=== PATIENT | female | born 1995 | race Caucasian/White ===

== ENCOUNTER 2018-04-20 09:28 | Emergency (ER) | payer BC ==
[~2018-04-20] VITALS: Ht 170.2 cm; Wt 54.4 kg
[~2018-04-20 09:28] MED LIST: BIRTH CONTROL; CEPH500 PO; HYDR1TAB94 PO; ONDA4 PO; Pyridium200 MG PO
[2018-04-20 10:15] LABS: BASOPHILS ABSOLUTE AUTO 0.03 K/mm3 (0.00-0.23); BASOPHILS PERCENT AUTO 0 % (0-2); EOSINOPHILS ABSOLUTE AUTO 0.13 K/mm3 (0.00-0.68); EOSINOPHILS PERCENT AUTO 1 % (0-6); Hemoglobin 13.3 g/dL (11.5-16.0); IMMATURE GRAN ABSOLUTE AUTO 0.03 K/mm3 (0.00-0.10); IMMATURE GRAN PERCENT AUTO 0 % (0-1); LYMPHOCYTES ABSOLUTE AUTO 2.44 K/mm3 (0.84-5.20); LYMPHOCYTES PERCENT AUTO 24 % (21-46); MONOCYTES ABSOLUTE AUTO 0.93 K/mm3 (0.16-1.47); MONOCYTES PERCENT AUTO 9 % (4-13); Mean Corpuscular HGB 31.4 pg (26.0-34.0); Mean Corpuscular Volume 90 fL (80-100); Mean Platelet Volume 9.3 fL (9.1-12.4); NEUTROPHILS ABSOLUTE AUTO 6.58 K/mm3 (1.96-9.15); NEUTROPHILS PERCENT AUTO 65 % (41-73); Platelet Count 293 K/mm3 (150-400); RDW Coefficient Variation 12.3 % (11.7-14.2); RDW Standard Deviation 40.9 fL (35.1-46.3); Red Blood Cell Count 4.23 M/mm3 (3.80-5.20); White Blood Cell Count 10.14 K/mm3 (4.00-11.30)
[2018-04-20 10:30] LABS: Alanine Aminotransfer (ALT/SGP 16 U/L (12-78); Albumin, Blood 3.7 g/dL (3.4-5.0); Alk Phos 101 U/L (50-136); Anion Gap 8 mmol/L (6-16); Aspartate Aminotrans (AST/SGOT 12 U/L (12-37); Bilirubin, Total 0.3 mg/dL (0.1-1.0); Blood Urea Nitrogen 13 mg/dL (8-24); CO2, Blood 23 mmol/L (21-32); Calcium, Blood 8.8 mg/dL (8.5-10.1); Chloride, Blood 110 mmol/L (98-108); Creatinine, Blood 0.81 mg/dL (0.40-1.00); Globulin, Blood 3.8 g/dL (2.2-4.0); Glomerular Filtration Rate >60 (60-); Glucose, Blood 86 mg/dL (70-99); Potassium, Blood 3.8 mmol/L (3.5-5.5); Sodium, Blood 141 mmol/L (136-145); Total Protein, Blood 7.5 g/dL (6.4-8.2)
[2018-04-20] MEDS ORDERED: Percocet 5-3251 EACH PO (12:19)
[2018-04-20] MEDS ORDERED: CEFP200 PO (12:19)
[2018-04-20] MEDS ORDERED: ALBU90OI INH (12:19)
== END 2018-04-20 12:28 | disposition home or self-care (01) ==
LOC: ER 09:28
PROVIDERS: Physician Assistant
DX: J18.9 Pneumonia, unspecified organism (principal); Z88.2 Allergy status to sulfonamides
CPT/HCPCS: 36415; 71046; 71260; 80053; 85025; 85379; 93005; 93010; 94640; 96374; 99284-25; J1885; J7120; Q9967

== ENCOUNTER 2019-09-10 04:54 | Emergency (ER) | payer BC ==
[~2019-09-10] VITALS: Ht 170.2 cm; Wt 86.2 kg
[~2019-09-10 04:54] MED LIST changes: +ALBU90OI INH; +CEFP200 PO; +Percocet 5-3251 EACH PO
[2019-09-10 05:14] LABS: Source, Urine Clean Catch
[2019-09-10 05:25] LABS: Appearance, Urine Hazy (Clear); Bilirubin, Urine Neg (Neg); Blood, Urine 5+ (Neg); Color, Urine Yellow (P-Yellow); Glucose Qualitative, Urine Neg (Neg); Ketones, Urine Neg (Neg); Leukocyte Esterase, Urine 2+ (Neg); Nitrite, Urine Neg (Neg); Protein, Urine 1+ (Neg); Urobilinogen, Urine NORM (Normal)
[2019-09-10 05:28] LABS: BASOPHILS ABSOLUTE AUTO 0.04 K/mm3 (0.00-0.23); BASOPHILS PERCENT AUTO 0 % (0-2); EOSINOPHILS ABSOLUTE AUTO 0.21 K/mm3 (0.00-0.68); EOSINOPHILS PERCENT AUTO 2 % (0-6); Hematocrit 41.5 % (33.0-51.0); Hemoglobin 13.8 g/dL (11.5-16.0); IMMATURE GRAN ABSOLUTE AUTO 0.05 K/mm3 (0.00-0.10); IMMATURE GRAN PERCENT AUTO 0 % (0-1); LYMPHOCYTES ABSOLUTE AUTO 3.76 K/mm3 (0.84-5.20); LYMPHOCYTES PERCENT AUTO 26 % (21-46); MONOCYTES ABSOLUTE AUTO 1.25 K/mm3 (0.16-1.47); MONOCYTES PERCENT AUTO 9 % (4-13); Mean Corpuscular HGB 29.9 pg (26.0-34.0); Mean Corpuscular HGB Conc 33.3 g/dL (31.5-36.5); Mean Corpuscular Volume 90 fL (80-100); Mean Platelet Volume 9.4 fL (9.1-12.4); NEUTROPHILS ABSOLUTE AUTO 9.05 K/mm3 (1.96-9.15); NEUTROPHILS PERCENT AUTO 63 % (41-73); Platelet Count 302 K/mm3 (150-400); RDW Coefficient Variation 12.6 % (11.7-14.2); RDW Standard Deviation 41.1 fL (35.1-46.3); Red Blood Cell Count 4.62 M/mm3 (3.80-5.20); White Blood Cell Count 14.36 K/mm3 (4.00-11.30)
[2019-09-10 05:33] LABS: Amorphous Light (0-Heavy); Bacteria Mod /hpf; Red Blood Cells, Urine 50-100 /hpf (0-2); Squamous Epithelial Cells Few /hpf (Few)
[2019-09-10 05:47] LABS: Alanine Aminotransfer (ALT/SGP 30 U/L (12-78); Albumin, Blood 3.5 g/dL (3.4-5.0); Albumin/Globulin Ratio 0.9 (0.8-1.8); Alk Phos 108 U/L (50-136); Anion Gap 8 mmol/L (6-16); Aspartate Aminotrans (AST/SGOT 17 U/L (12-37); Bilirubin, Total 0.4 mg/dL (0.1-1.0); Blood Urea Nitrogen 15 mg/dL (8-24); Bun/Creatinine Ratio 19.9 (12.0-20.0); CO2, Blood 24 mmol/L (21-32); Calcium, Blood 9.1 mg/dL (8.5-10.1); Chloride, Blood 110 mmol/L (98-108); Creatinine, Blood 0.75 mg/dL (0.40-1.00); Globulin, Blood 3.8 g/dL (2.2-4.0); Glomerular Filtration Rate >60 (60-); Glucose, Blood 97 mg/dL (70-99); Magnesium, Blood 1.9 mg/dL (1.6-2.4); Potassium, Blood 3.6 mmol/L (3.5-5.5); Sodium, Blood 142 mmol/L (136-145); Total Protein, Blood 7.3 g/dL (6.4-8.2)
[2019-09-10] MEDS ORDERED: ONDA4ODT MM (06:45)
[2019-09-10] MEDS ORDERED: CEFD300 PO (06:45)
== END 2019-09-10 07:00 | disposition home or self-care (01) ==
LOC: ER 04:54
PROVIDERS: Emergency Medicine
DX: N12 Tubulo-interstitial nephritis, not specified as acute or chronic (principal); Z88.2 Allergy status to sulfonamides; Z79.899 Other long term (current) drug therapy
CPT/HCPCS: 36415; 74176; 80053; 81001; 81025; 83690; 83735; 85025; 87086; 96361; 96365; 96375; 99284-25; A9270; J0696; J1170; J1885; J7030

== ENCOUNTER → 2019-10-08 | Outpatient (CLI) | payer BC ==
[~2019-10-08] MED LIST changes: +CEFD300 PO; +ONDA4ODT MM
[2019-10-08 11:23] LABS: BASOPHILS ABSOLUTE AUTO 0.05 K/mm3 (0.00-0.23); BASOPHILS PERCENT AUTO 1 % (0-2); EOSINOPHILS ABSOLUTE AUTO 0.14 K/mm3 (0.00-0.68); EOSINOPHILS PERCENT AUTO 1 % (0-6); Hematocrit 39.6 % (33.0-51.0); Hemoglobin 13.6 g/dL (11.5-16.0); IMMATURE GRAN ABSOLUTE AUTO 0.04 K/mm3 (0.00-0.10); IMMATURE GRAN PERCENT AUTO 0 % (0-1); LYMPHOCYTES ABSOLUTE AUTO 2.68 K/mm3 (0.84-5.20); LYMPHOCYTES PERCENT AUTO 26 % (21-46); MONOCYTES ABSOLUTE AUTO 0.78 K/mm3 (0.16-1.47); MONOCYTES PERCENT AUTO 8 % (4-13); Mean Corpuscular HGB 30.1 pg (26.0-34.0); Mean Corpuscular HGB Conc 34.3 g/dL (31.5-36.5); Mean Corpuscular Volume 88 fL (80-100); Mean Platelet Volume 9.6 fL (9.1-12.4); NEUTROPHILS ABSOLUTE AUTO 6.66 K/mm3 (1.96-9.15); NEUTROPHILS PERCENT AUTO 64 % (41-73); Platelet Count 290 K/mm3 (150-400); RDW Coefficient Variation 12.8 % (11.7-14.2); RDW Standard Deviation 41.1 fL (35.1-46.3); Red Blood Cell Count 4.52 M/mm3 (3.80-5.20); White Blood Cell Count 10.35 K/mm3 (4.00-11.30)
[2019-10-08 11:37] LABS: Alanine Aminotransfer (ALT/SGP 39 U/L (12-78); Albumin, Blood 3.8 g/dL (3.4-5.0); Albumin/Globulin Ratio 1.1 (0.8-1.8); Alk Phos 106 U/L (40-126); Anion Gap 15 mmol/L (6-16); Aspartate Aminotrans (AST/SGOT 21 U/L (12-37); Bilirubin, Total 0.3 mg/dL (0.1-1.0); Blood Urea Nitrogen 7 mg/dL (8-24); Bun/Creatinine Ratio 9.9 (12.0-20.0); CO2, Blood 20 mmol/L (21-32); Calcium, Blood 8.8 mg/dL (8.5-10.1); Chloride, Blood 106 mmol/L (98-108); Creatinine, Blood 0.71 mg/dL (0.40-1.00); Globulin, Blood 3.4 g/dL (2.2-4.0); Glomerular Filtration Rate >60 (60-); Glucose, Blood 90 mg/dL (70-99); Potassium, Blood 3.8 mmol/L (3.5-5.5); Sodium, Blood 141 mmol/L (136-145); Total Protein, Blood 7.2 g/dL (6.4-8.2)
[2019-10-09 06:32] LABS: Candida species (DNA Probe) Negative (NEGATIVE); G. vaginalis (DNA Probe) Negative (NEGATIVE); T. vaginalis (DNA Probe) Negative (NEGATIVE)
[2019-10-10 16:06] LABS: CHLAMYDIA TRACHOMATIS, NAA Negative (Negative); NEISSERIA GONORRHOEAE, NAA Negative (Negative)
== END ==
LOC: LAB EV 11:18 → LAB SHORT 11:18
PROVIDERS: Physician Assistant
DX: Z33.1 Pregnant state, incidental (principal)
CPT/HCPCS: 80053; 84702; 85025; 86900; 86901; 87480; 87491; 87510; 87591; 87660

== ENCOUNTER → 2020-01-06 | Outpatient (CLI) | payer OTHER | END | disposition home or self-care (01) | LOC: LAB SHORT 15:51 → LAB EV 15:51 | DX: J03.90 Acute tonsillitis, unspecified (principal) | CPT/HCPCS: 87081 ==

== ENCOUNTER → 2020-05-18 | Outpatient (CLI) | payer OTHER ==
[~2020-05-18] MED LIST changes: +PRENATAL TABLE1 EAC2 PO
[2020-05-19 08:42] LABS: Candida species (DNA Probe) Positive (NEGATIVE); G. vaginalis (DNA Probe) Negative (NEGATIVE); T. vaginalis (DNA Probe) Negative (NEGATIVE)
== END | disposition home or self-care (01) ==
LOC: LAB 12:33 → LAB SHORT 12:33
PROVIDERS: Obstetrics & Gynecology
DX: N76.0 Acute vaginitis (principal); Z33.1 Pregnant state, incidental
CPT/HCPCS: 87081; 87480; 87510; 87653; 87660

== ENCOUNTER 2020-05-24 09:30 | Inpatient (IN) | payer OTHER ==
[~2020-05-24] VITALS: Ht 170.2 cm; Wt 107.2 kg
[~2020-05-24 09:30] MED LIST changes: -PRENATAL TABLE1 EAC2 PO
[2020-06-03] MEDS ORDERED: PRENATAL TABLE1 EAC2 PO (15:29)
--- NOTE | 2020-06-03 15:55 | NUR ---
PREVISIT - HISTORY MORE THAN 5 YEARS AGO ATTEMPTED TO HURT SELF / NO ISSUE SINCE - WILL GET ORDER FROM DOCTOR ON ADMIT 06/04 @ 9424 BY ADMIT RN
--- NOTE | 2020-06-03 16:05 | NUR ---
PER DISCUSSION W/DR AND PATIENT NO CONCERNS
[2020-06-04 06:53] LABS: BASOPHILS ABSOLUTE AUTO 0.03 K/mm3 (0.00-0.23); BASOPHILS PERCENT AUTO 0 % (0-2); EOSINOPHILS ABSOLUTE AUTO 0.15 K/mm3 (0.00-0.68); EOSINOPHILS PERCENT AUTO 1 % (0-6); Hematocrit 32.4 % (33.0-51.0); Hemoglobin 10.8 g/dL (11.5-16.0); IMMATURE GRAN ABSOLUTE AUTO 0.09 K/mm3 (0.00-0.10); IMMATURE GRAN PERCENT AUTO 1 % (0-1); LYMPHOCYTES ABSOLUTE AUTO 2.28 K/mm3 (0.84-5.20); LYMPHOCYTES PERCENT AUTO 16 % (21-46); MONOCYTES ABSOLUTE AUTO 0.98 K/mm3 (0.16-1.47); MONOCYTES PERCENT AUTO 7 % (4-13); Mean Corpuscular HGB 28.5 pg (26.0-34.0); Mean Corpuscular HGB Conc 33.3 g/dL (31.5-36.5); Mean Corpuscular Volume 86 fL (80-100); Mean Platelet Volume 10.7 fL (9.1-12.4); NEUTROPHILS ABSOLUTE AUTO 10.39 K/mm3 (1.96-9.15); NEUTROPHILS PERCENT AUTO 75 % (41-73); Platelet Count 253 K/mm3 (150-400); RDW Coefficient Variation 13.8 % (11.7-14.2); RDW Standard Deviation 42.8 fL (35.1-46.3); Red Blood Cell Count 3.79 M/mm3 (3.80-5.20); White Blood Cell Count 13.92 K/mm3 (4.00-11.30)
--- NOTE | 2020-06-04 08:18 | NUR ---
06/04/20 0818 Madalyn Holley SPINAL IN, DR LUTZ ATTEMPTING VERSION, DR PLUNKETT ASSISTING
[2020-06-04 08:55] LABS: PCO2 Cord - Arterial 43 mmHg (40-50); PO2 Cord - Arterial 21 mmHg (16-20); pH Cord - Arterial 7.34 (7.28-7.35)
[2020-06-04 08:57] LABS: PCO2 Cord - Venous 40.1 mmHg (40-50); PO2 Cord - Venous 35.5 mmHg (28-32); pH Umbilical Cord - Venous 7.36 (7.26-7.35)
--- NOTE | 2020-06-04 10:59 | NUR ---
FORMULA FEEDING INITIATED DUE TO LOW CBG ON NB
[2020-06-05 06:01] LABS: Hematocrit 24.8 % (33.0-51.0); Mean Corpuscular HGB 28.1 pg (26.0-34.0); Mean Corpuscular HGB Conc 32.3 g/dL (31.5-36.5); Mean Corpuscular Volume 87 fL (80-100); Mean Platelet Volume 10.7 fL (9.1-12.4); Platelet Count 207 K/mm3 (150-400); RDW Coefficient Variation 13.8 % (11.7-14.2); RDW Standard Deviation 43.4 fL (35.1-46.3); Red Blood Cell Count 2.85 M/mm3 (3.80-5.20); White Blood Cell Count 17.14 K/mm3 (4.00-11.30)
--- NOTE | 2020-06-05 07:32 | NUR ---
ASSUMED CARE REPT FROM Philippe GONZALEZ RN, STABLE RESTING COMFORTABLY MINIMAL USE ON POLITICAL AIDE,
--- NOTE | 2020-06-05 13:09 | NUR ---
S/L IV TOLERATING PO PAIN MEDS WELL
--- NOTE | 2020-06-05 19:04 | NUR ---
STABLE PT UP AMBULATING SHORT DISTANCES, BREAST FEED WELL, HEADACHE RETURNS AT TIMES, HAVING GOOD PAIN CONTROL WITH PO MEDS PER PT, VOIDING W/O DIFFICULTY, REPT TO PM SHIFT, ENCOURAGED PT TO AMBULATE BEFORE BEDTIME
--- NOTE | 2020-06-06 06:41 | NUR ---
06/06/20 0500 pt continues to c/o head,neck and abd pain, given kpad nad ice pack and pt sitting up in chair 0630 pt assleep in bed with kpad on back of neck, ice pack on the front of her head and sitting with HOB elevated
--- NOTE | 2020-06-06 08:41 | NUR ---
DR LUTZ AT BEDSIDE, DISCUSSING SPINAL HEADACHE
--- NOTE | 2020-06-06 09:10 | NUR ---
PT LYING IN BED NOW C/O HEADACHE WHEN SHE STANDS, SO IN ROOM ASSISTING WITH CARE, MEDICATED FOR PAIN AT THIS TIME, ASSESSMENT OTHERWISE WNL
--- NOTE | 2020-06-06 10:57 | NUR ---
DR LUTZ NOTIFIED OF PT HEADACHE GETTING WORST WHEN STANDING UP, JULIANNE MENDEZ NOTIFIED OF ANESTH CONSULT R/O SPINAL ESTRELLA, MEDICATIONS ORDERED
--- NOTE | 2020-06-06 12:38 | NUR ---
PT UP OUT OF BED AMBULATING DOWN BERG PUSHING CRIB , SO AT HER SIDE
--- NOTE | 2020-06-06 13:29 | NUR ---
PT SITTING UP SLIGHTLY STATES PAIN 4/10 FOR HEADACHE, ENCOURAGE PT TO LIE FLAT TO HELP WITH HEADACHE SHE HAS STATED IT MUCH BETTER LYING FLAT. SO IN ROOM ASSISTING WITH CARE OF NB
--- NOTE | 2020-06-06 16:00 | NUR ---
NB DISCHARGE TEACHING COMPLETED, PT LYING FLAT IN BED STATE ESTRELLA IS COMPLETELY GONE WHEN LYING DOWN, SPOKE WITH JULIANNE RN IN OR, CONFIRMED DR CANALES WILL BE DOWN WHEN CASES ARE DONE. PT BREAST FEEDING IN THE SIDE LYING POSITION, EDUCATED PT AND SO NOT TO SLEEP WITH NB IN BED ONLY BREAST FEED THAN DAD CAN RETURN NB TO CRIB, BOTH VERBALIZED UNDERSTANDING
--- NOTE | 2020-06-06 18:52 | NUR ---
REPT TO PM SHIFT
--- NOTE | 2020-06-07 14:37 | NUR ---
CONSULT AN HOUR AGO JULIANNE FROM THE OR CALLED FOR AN ANESTHESIA CONSULT FOR SPINAL HEADACHE. PT CONTINUES TO BE MISERABLE AND DR GTZ STATES SHE WILL BE SEEN BEFORE SHE IS DISCHARGED HOME. JULIANNE MENDEZ CALLED BACK AND STATES DR WOOD WHO IS THE ONCALL DR TODAY DECLINES TO COME IN AT THIS TIME AND ASK THAT HIS COLLEGUE (NAME NOT GIVEN) THAT IS HERE TO DO THE CONSULT. THE ANESTHESIOLOGIST THAT WAS IN HOUSE HAD ALREADY LEFT AND REFUSES TO COME BACK IN FOR THE CONSULT AND NOW JULIANNE MENDEZ STATES HE WILL BE CALLING YVETTE AGAIN WHO TECHNICALLY ISNT ONCALL UNTIL 1700. CORDINATOR DIMPLE MENDEZ UPDATED ON THIS.
--- NOTE | 2020-06-07 18:25 | NUR ---
BLOOD PATCH DR CRAWFORD AT [facility] AT 1740. PATIENT DISCRIBED HEADACHE AND BENEFITS AND RISK FACTORS DISCUSSED WITH DR LUTZ AT BEDSIDE WELL. PT SIGNED CONSENT FOR BLOOD PATCH. PT SAT UP FOR PROCEDURE. 20 CC BLOOD DRAWN FROM LAC AND BLOOD PATCH DONE AT 1755. PATIENT INSTRUCTED TO LAY FLAT. NECK PAIN AND STIFFNESS FELT NOW BUT HER ACTUAL TEMPORAL HEAD PAIN SEEMED GONE. PT HAD NO QUESTIONS OR CONCERNS. PLAN TO DC HOME IN 1 HOUR PER BOLIVAR.
[2020-06-07] MEDS ORDERED: IBUP800 PO (18:36)
[2020-06-07] MEDS ORDERED: ACET500 (18:36)
[2020-06-07] MEDS ORDERED: COLACE100 MG PO (18:37)
[2020-06-07] MEDS ORDERED: OXYC5 PO (18:37)
--- NOTE | 2020-06-07 18:58 | NUR ---
DISCHARGE PT STILL LAYING FLAT AFTER BLOOD PATCH. PT STATES SHE IS FEELING MUCH BETTER AND JUST FEELING SOME PAIN IN HER NECK. MOTHER AND FATHER VERBALIZES UNDERSTANDING OF DISCHARGE INSTRUCTIONS AND FOLLOW UP APPOINTMENTS. PT UNDERSTAND TO GO HOME AND LAY DOWN LIFTING NOTHING HEAVIER THEN BABY. DR CRWAFORD INSTRUCTED NO PUSHING OR STRAINING FOR BOWEL MOVEMENTS SO IT DOESNT DISLODGE CLOT. NO QUESTIONS OR CONCERNS. WILL DC HOME WHEN DR CRAWFORD GIVES THE OK TO GET UP. STABLE. REPORT TO SHAKA MENDEZ.
--- NOTE | 2020-06-07 19:34 | NUR ---
PT OKAY TO SIT UP AT 1920 PER ASSISTANT FRONT OFFICE MANAGER. PT TOLERATED SITTING UP WELL AND STATES SHE DOESN'T HAVE A ESTRELLA ANYMORE AND DOES NOT NOTICE THE STIFFNESS IN HER NECK. PT UP TO THE BR W/O DIZZINESS OR PAIN. RN REINFORCE INSTRUCTIONS TO AVOID STRAINING AND LIFTING ANYTHING HEAVIER THAN BABY. RN TO MATCH ID BANDS WITH AND DISCHAGE PT HOME. PT STATES SHE FEELS MUCH BETTER AND SAFE TO DISCHARGE. PT DENIES ANY QUESTIONS OR CONCERNS AT THIS TIME.
== END 2020-06-07 20:54 | disposition home or self-care (01) | DRG 788 ==
LOC: BC 06-04 05:37
PROVIDERS: Obstetrics & Gynecology; ADMIT Obstetrics & Gynecology
PROC: 10S0XZZ Reposition Products of Conception, External Approach (ICD-10-PCS; 2020-06-04)
PROC: 10D00Z1 Extraction of Products of Conception, Low, Open Approach (ICD-10-PCS; principal; 2020-06-04 07:30)
DX: O32.1XX0 Maternal care for breech presentation, not applicable or unspecified (principal); O24.420 Gestational diabetes mellitus in childbirth, diet controlled; O13.4 Gestational [pregnancy-induced] hypertension without significant proteinuria, complicating childbirth; Z37.0 Single live birth; Z3A.37 37 weeks gestation of pregnancy; O74.5 Spinal and epidural anesthesia-induced headache during labor and delivery; O99.214 Obesity complicating childbirth; E66.9 Obesity, unspecified; O99.62 Diseases of the digestive system complicating childbirth; K21.9 Gastro-esophageal reflux disease without esophagitis; Z87.891 Personal history of nicotine dependence
CPT/HCPCS: 36415; 82803; 82947; 85025; 85027; 86850; 86900; 86901; J0330; J0690; J1100; J1170; J1885; J2250; J2370; J2405; J2590; J2704; J2765; J3010; J3105; J7120; U0002

== ENCOUNTER 2022-01-27 16:02 | Emergency (ER) | payer OTHER ==
[~2022-01-27] VITALS: Ht 172.7 cm; Wt 81.7 kg
[~2022-01-27 16:02] MED LIST changes: +ACET500; +COLACE100 MG PO; +IBUP800 PO; +OXYC5 PO; +PRENATAL TABLE1 EAC2 PO
== END 2022-01-27 16:55 | disposition home or self-care (01) ==
LOC: ER 16:02
DX: S80.212A Abrasion, left knee, initial encounter (principal); M79.644 Pain in right finger(s); Z88.2 Allergy status to sulfonamides; V89.2XXA Person injured in unspecified motor-vehicle accident, traffic, initial encounter
CPT/HCPCS: 73140; 99284-25; A9270

== ENCOUNTER 2022-05-18 16:05 | Emergency (ER) | payer OTHER ==
[~2022-05-18] VITALS: Ht 167.6 cm; Wt 68.0 kg
[2022-05-18 17:13] LABS: Source, Urine Clean Catch
[2022-05-18 17:17] LABS: Appearance, Urine Clear (Clear); Bilirubin, Urine Neg (Neg); Blood, Urine 1+ (Neg); Color, Urine Yellow (P-Yellow); Glucose Qualitative, Urine Neg (Neg); Ketones, Urine 1+ (Neg); Leukocyte Esterase, Urine Neg (Neg); Nitrite, Urine Neg (Neg); Protein, Urine Neg (Neg); Specific Gravity, Urine 1.025 (1.003-1.022); Urobilinogen, Urine NORM (Normal)
[2022-05-18 17:26] LABS: Bacteria Mod /hpf; Mucus Light (0-Heavy); Red Blood Cells, Urine 0-2 /hpf (0-2); Squamous Epithelial Cells Few /hpf (Few); White Blood Cells, Urine 0-2 /hpf (0-5)
[2022-05-18] MEDS ORDERED: CEPH500 PO (17:48)
== END 2022-05-18 18:00 | disposition home or self-care (01) ==
LOC: ER 16:05
PROVIDERS: Physician Assistant
DX: N39.0 Urinary tract infection, site not specified (principal); Z79.899 Other long term (current) drug therapy
CPT/HCPCS: 81001; 81025; A9270; J1885

== ENCOUNTER → 2022-07-31 | Outpatient (CLI) | payer OTHER | END | disposition home or self-care (01) | LOC: LAB SHORT 13:19 → PLD 13:19 | DX: D22.61 Melanocytic nevi of right upper limb, including shoulder (principal) | CPT/HCPCS: 88305 ==

== ENCOUNTER 2023-03-02 06:16 | Day surgery (SDC) | payer OTHER ==
[2023-03-02] VITALS (14 sets, daily range): BP systolic 95–143; BP diastolic 55–91
[~2023-03-02] VITALS: Ht 177.8 cm; Wt 112.0 kg
[~2023-03-02 06:16] MED LIST changes: +LESSINA-28 TAB1 EACH PO; +ZOLOFT100 M1 PO
--- NOTE | 2023-03-02 07:08 | NUR ---
Ambulatory in Day Surgery WITH STEADY GAIT. Surgical site prepped with 2% Chlorhexidine cloth wipe. History, Chart, Medications and Allergies reviewed before start of procedure. Lungs clear T/O to Auscultation. Patient confirms NPO status and agrees with scheduled surgery. Pre-Op teaching done. Pt verbalizes understanding. Patient States Post-Procedure ride home has been arranged WITH BOYFRIEND, OLGA LIDIA. JEWELRY REFUSAL FORM SIGNED AND TAPE PLACED OVER JEWELRY.
--- NOTE | 2023-03-02 18:34 | NUR ---
SHIFT SUMMARY NEW ADMIT TO UNIT FROM PACU FOR EXTENDED RECOVERY POD 0 BILAT CYCSTECTOMY, UMBILICAL HERNIA REPAIR, AND LYSIS OF ADHESIONS. SLEEPY BUT ORIENTED AND ANSWERS QUESTIONS APPROPRIATELY. POST OP VSS. REPORTED GAS PAIN TO RIGHT SHOULDER, AND ABD PAIN. MANAGED WITH WARMTH AND MEDS PER EMAR. 5 LAP SITES WNL. PERIPAD WITH SCAN SPOTTING. TOLERATED SIPS OF WATER AND BITES OF FOOD. SBA UP TO BATHROOM, VOIDING WELL. REPORTS FEELING DIZZY WHEN STANDING. DR LUTZ TO BEDSIDE. PER DR LUTZ PATIENT MAY GO HOME TONIGHT IF SHE IS ABLE TO WALK TO BATHROOM ON HER OWN. PATIENT SLEEPING AND RESTING IN BED AT THIS TIME.
[2023-03-03] VITALS (7 sets, daily range): BP systolic 93–115; BP diastolic 49–77
--- NOTE | 2023-03-03 07:34 | NUR ---
POD 1 S/P LAP CYSTECTOMY + IVONNE. PT VSS T/O NIGHT. INCISIONS CDI. PT HAD SCANT VAGINAL BLEEDING, REP NO BLEEDING THIS AM. PAIN MGD PER EMAR W/REP RELIEF. PT BAKARI REG PO, DENIED N/V, REP +FLATUS, IS VOIDING URINE W/O DIFFICULTY. PT CONT TO REP MILD DIZZINESS WHEN UP. SBA OOB. DR LUTZ UPDATED THIS AM.
[2023-03-03 08:23] LABS: BASOPHILS ABSOLUTE AUTO 0.03 K/mm3 (0.00-0.23); BASOPHILS PERCENT AUTO 0 % (0-2); EOSINOPHILS PERCENT AUTO 0 % (0-6); Hematocrit 31.6 % (33.0-51.0); Hemoglobin 10.3 g/dL (11.5-16.0); IMMATURE GRAN ABSOLUTE AUTO 0.09 K/mm3 (0.00-0.10); IMMATURE GRAN PERCENT AUTO 1 % (0-1); LYMPHOCYTES ABSOLUTE AUTO 1.96 K/mm3 (0.84-5.20); LYMPHOCYTES PERCENT AUTO 11 % (21-46); MONOCYTES ABSOLUTE AUTO 0.85 K/mm3 (0.16-1.47); MONOCYTES PERCENT AUTO 5 % (4-13); Mean Corpuscular HGB 28.7 pg (26.0-34.0); Mean Corpuscular HGB Conc 32.6 g/dL (31.5-36.5); Mean Corpuscular Volume 88 fL (80-100); Mean Platelet Volume 9.6 fL (9.1-12.4); NEUTROPHILS ABSOLUTE AUTO 14.68 K/mm3 (1.96-9.15); NEUTROPHILS PERCENT AUTO 83 % (41-73); Platelet Count 237 K/mm3 (150-400); RDW Coefficient Variation 14.2 % (11.7-14.2); RDW Standard Deviation 45.4 fL (35.1-46.3); Red Blood Cell Count 3.59 M/mm3 (3.80-5.20); White Blood Cell Count 17.61 K/mm3 (4.00-11.30)
--- NOTE | 2023-03-03 08:30 | NUR ---
ASSUMPTION OF CARE S/P LAP OVARIAN CYSTECTOMY, POD 1. AOX4. MOST RECENT BP 94/57, REPORTS POSTOP DIZZINESS UPON STANDING. CBC ORDERED & DRAWN THIS AM. REPORTS PAIN 5/10, PLAN IS TO MEDICATE PER EMAR. TOLERATING PO INTAKE, NO N/V. 1 PERSON/SBA DUE TO POST OP DIZZINESS. 5 ABD LAP SITES, OPEN TO AIR W/ WOUND GLUE. C/D/I W/ SOME BRUISING ASSESSED AROUND INCISION SITES. SCANT VAGINAL BLEEDING, KERA PAD IN PLACE. REPORTS DIFFICULTY W/ FLATULENCE. NO IV ACCESS, PLAN IS TO DC TODAY. SEE ASSESSMENT FOR MORE INFO.
[2023-03-03] MEDS ORDERED: ACET500 PO (10:40)
[2023-03-03] MEDS ORDERED: IBUP400 PO (10:42)
[2023-03-03] MEDS ORDERED: OXYC5 PO (10:42)
[2023-03-03] MEDS ORDERED: SIME80CH PO (10:43)
--- NOTE | 2023-03-03 11:25 | NUR ---
DISCHARGE SUMMARY S/P LAP OVARIAN CYSTECTOMY, POD 1. VSS. VOIDING. POST OP DIZZINESS UPON STANDING, CBC, & PT UDPATE, DISCUSSED W/ DOCTOR. PT COMFORTABLE W/ DC. 5 LAP SITES OPEN TO AIR, C/D/I. SCANT VAGINAL BLEEDING. PAIN TOLERABLE W/ PRESCRIBED MEDICATIONS. TOLERATING PO INTAKE, NO N/V. PT TRANSFERRED TO PERSONAL VEHICLE VIA WHEELCHAIR.
== END 2023-03-03 11:29 | disposition home or self-care (01) ==
LOC: ORSCMMR 06:16 → ORD 07:30 → ORSCMMR 07:30 → SURS 13:20 → ORSCMMR 03-03 11:29
PROVIDERS: Obstetrics & Gynecology
PROC: 0UB24ZZ Excision of Bilateral Ovaries, Percutaneous Endoscopic Approach (ICD-10-PCS; principal; 2023-03-02 07:30)
PROC: 0DNU4ZZ Release Omentum, Percutaneous Endoscopic Approach (ICD-10-PCS; principal; 2023-03-02 07:30)
DX: N83.291 Other ovarian cyst, right side (principal); N83.292 Other ovarian cyst, left side; N73.6 Female pelvic peritoneal adhesions (postinfective); Z01.818 Encounter for other preprocedural examination; E66.9 Obesity, unspecified; Z68.35 Body mass index [BMI] 35.0-35.9, adult
CPT/HCPCS: 36415; 85025; 86850; 86900; 86901; 88305; A9270; J1100; J1885; J2250; J2405; J2704; J2765; J2795; J3010; J7120

== ENCOUNTER → 2023-05-03 | Outpatient (CLI) | payer OTHER ==
[~2023-05-03] MED LIST changes: +ACET500 PO; +IBUP400 PO; +SIME80CH PO
[2023-05-05 07:21] LABS: HBSAG SCREEN Negative (Negative); HCV ANTIBODY Non Reactive (Non Reactive); HIV AB/P24 AG SCREEN Non Reactive (Non Reactive)
== END | disposition home or self-care (01) ==
LOC: LAB SHORT 16:46 → LAB 16:46
PROVIDERS: Physician Assistant
DX: Z20.9 Contact with and (suspected) exposure to unspecified communicable disease (principal)
CPT/HCPCS: 84460; 86317; 86803; 87340; 87389

== ENCOUNTER → 2024-05-02 | Outpatient (CLI) | payer OTHER ==
[2024-05-03 12:28] LABS: Bacterial Vaginosis PCR Negative (NEGATIVE); Candida Group, PCR NOT DETECTED (NOT DETECT)
[2024-05-03 12:30] LABS: Candida glabrata-krusei, PCR DETECTED (NOT DETECT)
== END | disposition home or self-care (01) ==
LOC: LAB SHORT 16:05 → LAB 16:05
PROVIDERS: Family Medicine
DX: N76.0 Acute vaginitis (principal)
CPT/HCPCS: 87481; 87661; 87801

== ENCOUNTER → 2024-06-06 | Outpatient (CLI) | payer OTHER | LOC: LAB SHORT 16:26 → LAB 16:26 | DX: O09.893 Supervision of other high risk pregnancies, third trimester (principal); Z3A.00 Weeks of gestation of pregnancy not specified | CPT/HCPCS: 87081; 87150 ==

== ENCOUNTER 2024-06-30 18:57 | Inpatient (IN) | payer OTHER ==
[~2024-06-30] VITALS: Ht 177.8 cm; Wt 105.4 kg
[2024-06-30] MEDS ORDERED: Carboprost Tromethamine 250 MCG/ML 1ML Amp IM PRN (19:20)
[2024-06-30] MEDS ORDERED: FentaNYL 2mcg/ml-Bup 0.1% Epd 250 ML EPI PRN (19:20)
[2024-06-30] MEDS ORDERED: Oxytocin 10 Unit / ML Vial IM PRN (19:20)
[2024-06-30] MEDS ORDERED: Methylergonovine Maleate 0.2MG / ML 1ML Amp IM PRN (19:20)
[2024-06-30] MEDS ORDERED: ePHEDrine Sulfate 50 MG/ML 1ML Injection XX PRN (19:20)
[2024-06-30] MEDS ORDERED: Tranexamic Acid 100 ML IV SCH (19:20)
[2024-06-30] MEDS ORDERED: Misoprostol 200 MCG Tab BC PRN (19:20)
[2024-06-30] MEDS ORDERED: OXYTOCIN/RINGER'S LACTATE 500 ML IV PRN (19:20)
[2024-06-30] MEDS ORDERED: Misoprostol 200 MCG Tab PR PRN (19:20)
[2024-06-30] MEDS ORDERED: OXYTOCIN/RINGER'S LACTATE 500 ML IV SCH (19:20)
[2024-06-30] MEDS ORDERED: Lactated Ringer's 1,000 ML IV PRN ×4 (19:20→19:25)
[2024-06-30 19:24] VITALS: BP 131/77
[2024-06-30] MEDS ORDERED: Ondansetron HCl 2 MG / ML 2ML Vial IV PRN (19:30)
[2024-06-30] MEDS ORDERED: Acetaminophen 500 MG Tab PO PRN (19:30)
[2024-06-30] MEDS ORDERED: Calcium Carbonate 500 MG Tab Chew PO PRN (19:30)
[2024-06-30 19:53] LABS: BASOPHILS ABSOLUTE AUTO 0.03 K/mm3 (0.00-0.23); BASOPHILS PERCENT AUTO 0 % (0-2); EOSINOPHILS ABSOLUTE AUTO 0.14 K/mm3 (0.00-0.68); EOSINOPHILS PERCENT AUTO 1 % (0-6); Hematocrit 32.1 % (33.0-51.0); Hemoglobin 10.9 g/dL (11.5-16.0); IMMATURE GRAN ABSOLUTE AUTO 0.07 K/mm3 (0.00-0.10); IMMATURE GRAN PERCENT AUTO 1 % (0-1); LYMPHOCYTES ABSOLUTE AUTO 1.89 K/mm3 (0.84-5.20); LYMPHOCYTES PERCENT AUTO 14 % (21-46); MONOCYTES ABSOLUTE AUTO 0.75 K/mm3 (0.16-1.47); MONOCYTES PERCENT AUTO 5 % (4-13); Mean Corpuscular HGB 29.1 pg (26.0-34.0); Mean Corpuscular Volume 86 fL (80-100); Mean Platelet Volume 10.1 fL (9.1-12.4); NEUTROPHILS ABSOLUTE AUTO 10.94 K/mm3 (1.96-9.15); NEUTROPHILS PERCENT AUTO 79 % (41-73); Platelet Count 242 K/mm3 (150-400); RDW Coefficient Variation 13.9 % (11.7-14.2); Red Blood Cell Count 3.74 M/mm3 (3.80-5.20); White Blood Cell Count 13.82 K/mm3 (4.00-11.30)
[2024-06-30] MEDS ORDERED: ASPI81CH PO (19:53)
[2024-06-30] MEDS ORDERED: FentaNYL Citrate 50 MCG/ML 2 ML Injection ONE (19:56)
[2024-06-30 20:27] LABS: Albumin, Blood 2.6 g/dL (3.4-5.0); Albumin/Globulin Ratio 0.7 (0.8-1.8); Bilirubin, Total 0.2 mg/dL (0.1-1.0); Bun/Creatinine Ratio 13.4 (12.0-20.0); Calcium, Blood 9.1 mg/dL (8.5-10.1); Creatinine, Blood 0.6 mg/dL (0.40-1.00); Globulin, Blood 3.9 g/dL (2.2-4.0); Potassium, Blood 3.7 mmol/L (3.5-5.5); Total Protein, Blood 6.5 g/dL (6.4-8.2)
[2024-06-30 20:56] VITALS: BP 119/60
[2024-06-30] MEDS ORDERED: FentaNYL Citrate 50 MCG/ML 2 ML Injection IV PRN (21:05)
[2024-07-01] VITALS (35 sets, daily range): BP systolic 101–155; BP diastolic 55–100
[2024-07-01] MEDS ORDERED: OXYTOCIN/RINGER'S LACTATE 500 ML IV SCH ×2 (05:40→16:35)
[2024-07-01] MEDS ORDERED: Azithromycin 500 MG in NS 250 ML IV SCH (14:40)
[2024-07-01] MEDS ORDERED: CeFAZolin Sodium 2,000 MG in NS 100 ML IV SCH (14:40)
[2024-07-01] MEDS ORDERED: Citric Acid/Sodium Citrate 30 ML BTL PO STA (14:41)
[2024-07-01] MEDS ORDERED: Metoclopramide HCl 5MG / ML 2ML Vial IV SCH (14:45)
[2024-07-01] MEDS ORDERED: Lidocaine HCl 2% 10 ML SDA ONE (15:03)
[2024-07-01] MEDS ORDERED: Bupivacaine HCl 0.25% 30 ML Injection ONE (15:27)
[2024-07-01] MEDS ORDERED: ePHEDrine Sulfate 50 MG/ML 1ML Injection ONE (15:29)
--- NOTE | 2024-07-01 15:40 | NUR ---
07/01/24 1540 Perla Washburn S R C/S DELIVERY OF BABY GIRL AT 1531. AP /. WT 7-13. CORD BLOOD COLLECTED AND GIVEN TO ANDREA PATRICK
[2024-07-01] MEDS ORDERED: Oxytocin 10 Unit / ML Vial ONE (15:41)
[2024-07-01] MEDS ORDERED: HYDROmorphone HCl/Pf 1MG SYR IV PRN (16:10)
[2024-07-01] MEDS ORDERED: Ondansetron HCl 2 MG / ML 2ML Vial IV PRN ×2 (16:10→16:35)
[2024-07-01] MEDS ORDERED: FentaNYL Citrate 50 MCG/ML 2 ML Injection IV PRN ×2 (16:10→16:15)
[2024-07-01] MEDS ORDERED: Morphine Sulfate 4 MG/1 ML Injection IV PRN (16:10)
[2024-07-01] MEDS ORDERED: Dexamethasone Sodium Phosphate 4 MG/ML 5ML VIAL IV PRN (16:15)
[2024-07-01] MEDS ORDERED: Atropine Sulfate 0.1 MG/ML 10ML SYR IV PRN (16:15)
[2024-07-01] MEDS ORDERED: Magnesium Hydroxide Conc 10 ML UDC PO PRN (16:30)
[2024-07-01] MEDS ORDERED: Misoprostol 200 MCG Tab PR PRN (16:30)
[2024-07-01] MEDS ORDERED: OxyCODONE HCL 5 MG TAB PO PRN ×2 (16:35)
[2024-07-01] MEDS ORDERED: Simethicone 80 MG Chew PO PRN (16:35)
[2024-07-01] MEDS ORDERED: Lanolin Cream TOP PRN (16:35)
[2024-07-01] MEDS ORDERED: Methylergonovine Maleate 0.2MG / ML 1ML Amp IM PRN (16:35)
[2024-07-01] MEDS ORDERED: Acetaminophen 500 MG Tab PO PRN (16:40)
[2024-07-01] MEDS ORDERED: Carboprost Tromethamine 250 MCG/ML 1ML Amp IM PRN (16:40)
[2024-07-01] MEDS ORDERED: Metoclopramide HCl 10 MG Tab PO PRN (16:40)
[2024-07-01] MEDS ORDERED: DiphenhydrAMINE HCL 25 MG Cap PO PRN (16:40)
[2024-07-01] MEDS ORDERED: Ketorolac Tromethamine 30mg Vial IV SCH (17:00)
[2024-07-01] MEDS ORDERED: Docusate Sodium 100 MG Cap PO SCH (21:00)
--- NOTE | 2024-07-01 21:15 | NUR ---
REPOSITIONED AND GIVEN HEATING PAD.
[2024-07-02] MEDS ORDERED: Ibuprofen 400 MG Tab PO SCH
[2024-07-02 04:27] VITALS: BP 105/60
[2024-07-02 05:45] LABS: BASOPHILS ABSOLUTE AUTO 0.03 K/mm3 (0.00-0.23); BASOPHILS PERCENT AUTO 0 % (0-2); EOSINOPHILS ABSOLUTE AUTO 0.06 K/mm3 (0.00-0.68); EOSINOPHILS PERCENT AUTO 0 % (0-6); Hematocrit 28.1 % (33.0-51.0); Hemoglobin 9.4 g/dL (11.5-16.0); IMMATURE GRAN ABSOLUTE AUTO 0.09 K/mm3 (0.00-0.10); IMMATURE GRAN PERCENT AUTO 1 % (0-1); LYMPHOCYTES PERCENT AUTO 14 % (21-46); MONOCYTES ABSOLUTE AUTO 0.81 K/mm3 (0.16-1.47); MONOCYTES PERCENT AUTO 6 % (4-13); Mean Corpuscular HGB 28.9 pg (26.0-34.0); Mean Corpuscular HGB Conc 33.5 g/dL (31.5-36.5); Mean Corpuscular Volume 87 fL (80-100); Mean Platelet Volume 10.5 fL (9.1-12.4); NEUTROPHILS ABSOLUTE AUTO 11.11 K/mm3 (1.96-9.15); NEUTROPHILS PERCENT AUTO 79 % (41-73); Platelet Count 199 K/mm3 (150-400); RDW Coefficient Variation 14.2 % (11.7-14.2); RDW Standard Deviation 44.4 fL (35.1-46.3); Red Blood Cell Count 3.25 M/mm3 (3.80-5.20)
[2024-07-02 07:21] VITALS: BP 106/72
[2024-07-02] MEDS ORDERED: Prenatal Vit/FE Fumarate/FA 1 Tab PO SCH (09:00)
[2024-07-02] MEDS ORDERED: Ketorolac Tromethamine 30mg Vial IV ONE (10:20)
[2024-07-02 11:30] VITALS: BP 117/69
[2024-07-02 17:01] VITALS: BP 106/56
[2024-07-02 19:07] VITALS: BP 122/69
[2024-07-02 23:30] VITALS: BP 119/70
[2024-07-03 05:02] VITALS: BP 122/68
[2024-07-03 07:48] VITALS: BP 132/67
[2024-07-03 12:05] VITALS: BP 123/71
== END 2024-07-03 12:38 | disposition home or self-care (01) | DRG 787 ==
LOC: OBS 18:57 → BC 18:57 → OBS 19:10 → BC 19:11
PROVIDERS: ADMIT Obstetrics & Gynecology
PROC: 10D00Z1 Extraction of Products of Conception, Low, Open Approach (ICD-10-PCS; principal; 2024-07-01 15:00)
DX: O34.211 Maternal care for low transverse scar from previous cesarean delivery (principal); O10.92 Unspecified pre-existing hypertension complicating childbirth; Z3A.39 39 weeks gestation of pregnancy; Z37.0 Single live birth; O24.420 Gestational diabetes mellitus in childbirth, diet controlled; O76 Abnormality in fetal heart rate and rhythm complicating labor and delivery; O74.5 Spinal and epidural anesthesia-induced headache during labor and delivery; O35.8XX0 Maternal care for other (suspected) fetal abnormality and damage, not applicable or unspecified; Z88.2 Allergy status to sulfonamides; Z87.891 Personal history of nicotine dependence; Z79.899 Other long term (current) drug therapy; Z79.82 Long term (current) use of aspirin
CPT/HCPCS: 36415; 80053; 82947; 85025; 86850; 86900; 86901; 86923; A9270; J0456; J0690; J1885; J2001; J2590; J2765; J3010; J7050; J7120

== ENCOUNTER 2024-07-07 11:11 | Emergency (ER) | payer OTHER ==
[~2024-07-07] VITALS: Ht 170.2 cm; Wt 68.0 kg
[~2024-07-07 11:11] MED LIST changes: +ASPI81CH PO
[2024-07-07 11:58] LABS: BASOPHILS ABSOLUTE AUTO 0.03 K/mm3 (0.00-0.23); BASOPHILS PERCENT AUTO 0 % (0-2); EOSINOPHILS ABSOLUTE AUTO 0.27 K/mm3 (0.00-0.68); EOSINOPHILS PERCENT AUTO 3 % (0-6); Hematocrit 32.9 % (33.0-51.0); IMMATURE GRAN ABSOLUTE AUTO 0.04 K/mm3 (0.00-0.10); IMMATURE GRAN PERCENT AUTO 0 % (0-1); LYMPHOCYTES ABSOLUTE AUTO 1.23 K/mm3 (0.84-5.20); LYMPHOCYTES PERCENT AUTO 13 % (21-46); MONOCYTES ABSOLUTE AUTO 0.53 K/mm3 (0.16-1.47); MONOCYTES PERCENT AUTO 6 % (4-13); Mean Corpuscular HGB 28.8 pg (26.0-34.0); Mean Corpuscular HGB Conc 33.4 g/dL (31.5-36.5); Mean Corpuscular Volume 86 fL (80-100); Mean Platelet Volume 9.4 fL (9.1-12.4); NEUTROPHILS ABSOLUTE AUTO 7.37 K/mm3 (1.96-9.15); NEUTROPHILS PERCENT AUTO 78 % (41-73); Platelet Count 327 K/mm3 (150-400); RDW Coefficient Variation 13.6 % (11.7-14.2); RDW Standard Deviation 42.5 fL (35.1-46.3); Red Blood Cell Count 3.82 M/mm3 (3.80-5.20); White Blood Cell Count 9.47 K/mm3 (4.00-11.30)
[2024-07-07 12:37] LABS: Albumin, Blood 2.8 g/dL (3.4-5.0); Albumin/Globulin Ratio 0.6 (0.8-1.8); Bilirubin, Total 0.4 mg/dL (0.1-1.0); Bun/Creatinine Ratio 17.8 (12.0-20.0); Calcium, Blood 9.8 mg/dL (8.5-10.1); Creatinine, Blood 0.62 mg/dL (0.40-1.00); Globulin, Blood 4.6 g/dL (2.2-4.0); Potassium, Blood 4.1 mmol/L (3.5-5.5); Total Protein, Blood 7.4 g/dL (6.4-8.2)
[2024-07-07 13:36] LABS: Source, Urine Clean Catch
[2024-07-07 13:45] LABS: Appearance, Urine Clear (Clear); Bilirubin, Urine Neg (Neg); Blood, Urine 3+ (Neg); Color, Urine Yellow (P-Yellow); Glucose Qualitative, Urine Neg (Neg); Ketones, Urine Neg (Neg); Leukocyte Esterase, Urine Neg (Neg); Nitrite, Urine Neg (Neg); Protein, Urine Neg (Neg); Urobilinogen, Urine NORM (Normal)
[2024-07-07 13:56] LABS: White Blood Cells, Urine 0-2 /hpf (0-5)
[2024-07-07 13:57] LABS: Bacteria Rare /hpf; Squamous Epithelial Cells Few /hpf (Few)
[2024-07-07 14:48] VITALS: BP 117/81
[2024-07-07] MEDS ORDERED: Sennosides 8.6 MG Tab PO ONE (15:25)
[2024-07-07] MEDS ORDERED: Polyethylene Glycol 3350 17 gm PO ONE (15:25)
== END 2024-07-07 15:45 | disposition home or self-care (01) ==
LOC: ER 11:11
PROVIDERS: Physician Assistant
DX: O99.63 Diseases of the digestive system complicating the puerperium (principal); K59.00 Constipation, unspecified; Z88.2 Allergy status to sulfonamides; Z79.899 Other long term (current) drug therapy; Z79.82 Long term (current) use of aspirin
CPT/HCPCS: 80053; 81001; 85025; 99284; A9270

== ENCOUNTER 2024-07-08 17:55 | Emergency (ER) | payer OTHER ==
[~2024-07-08] VITALS: Ht 170.2 cm; Wt 68.0 kg
[2024-07-08 18:26] LABS: BASOPHILS ABSOLUTE AUTO 0.03 K/mm3 (0.00-0.23); BASOPHILS PERCENT AUTO 0 % (0-2); EOSINOPHILS ABSOLUTE AUTO 0.33 K/mm3 (0.00-0.68); EOSINOPHILS PERCENT AUTO 3 % (0-6); Hematocrit 34.9 % (33.0-51.0); Hemoglobin 11.6 g/dL (11.5-16.0); IMMATURE GRAN ABSOLUTE AUTO 0.05 K/mm3 (0.00-0.10); IMMATURE GRAN PERCENT AUTO 1 % (0-1); LYMPHOCYTES ABSOLUTE AUTO 2.02 K/mm3 (0.84-5.20); LYMPHOCYTES PERCENT AUTO 18 % (21-46); MONOCYTES ABSOLUTE AUTO 0.47 K/mm3 (0.16-1.47); MONOCYTES PERCENT AUTO 4 % (4-13); Mean Corpuscular HGB 28.7 pg (26.0-34.0); Mean Corpuscular HGB Conc 33.2 g/dL (31.5-36.5); Mean Corpuscular Volume 86 fL (80-100); Mean Platelet Volume 9.3 fL (9.1-12.4); NEUTROPHILS ABSOLUTE AUTO 8.05 K/mm3 (1.96-9.15); NEUTROPHILS PERCENT AUTO 74 % (41-73); Platelet Count 373 K/mm3 (150-400); RDW Coefficient Variation 13.6 % (11.7-14.2); RDW Standard Deviation 43.1 fL (35.1-46.3); Red Blood Cell Count 4.04 M/mm3 (3.80-5.20); White Blood Cell Count 10.95 K/mm3 (4.00-11.30)
[2024-07-08 18:56] LABS: Albumin, Blood 2.9 g/dL (3.4-5.0); Albumin/Globulin Ratio 0.6 (0.8-1.8); Bilirubin, Total 0.3 mg/dL (0.1-1.0); Calcium, Blood 9.6 mg/dL (8.5-10.1); Creatinine, Blood 0.61 mg/dL (0.40-1.00); Globulin, Blood 4.5 g/dL (2.2-4.0); Potassium, Blood 3.7 mmol/L (3.5-5.5); Total Protein, Blood 7.4 g/dL (6.4-8.2)
[2024-07-08] MEDS ORDERED: Ketorolac Tromethamine 30mg Vial IV ONE (20:15)
[2024-07-08 20:22] VITALS: BP 128/86
== END 2024-07-08 21:19 | disposition home or self-care (01) ==
LOC: ER 17:55
PROVIDERS: Physician Assistant
DX: R10.31 Right lower quadrant pain (principal); Z79.82 Long term (current) use of aspirin; Z88.2 Allergy status to sulfonamides; Z79.899 Other long term (current) drug therapy
CPT/HCPCS: 74177; 80053; 85025; 96374-59; 99284-25; J1885; Q9967

== ENCOUNTER 2024-07-21 02:17 | Observation (INO) | payer OTHER ==
[~2024-07-21] VITALS: Ht 170.2 cm; Wt 68.0 kg
[2024-07-21] VITALS (12 sets, daily range): BP systolic 104–147; BP diastolic 56–101
[2024-07-21] MEDS ORDERED: Mag Hydrox/AL Hydrox/Simeth 30 ML UDC PO ONE (02:25)
[2024-07-21] MEDS ORDERED: Lidocaine 2% Viscous Soln 15 ML UDC PO ONE (02:25)
[2024-07-21 02:32] LABS: BASOPHILS ABSOLUTE AUTO 0.04 K/mm3 (0.00-0.23); BASOPHILS PERCENT AUTO 0 % (0-2); EOSINOPHILS ABSOLUTE AUTO 0.36 K/mm3 (0.00-0.68); EOSINOPHILS PERCENT AUTO 4 % (0-6); Hematocrit 33.8 % (33.0-51.0); Hemoglobin 11.1 g/dL (11.5-16.0); IMMATURE GRAN ABSOLUTE AUTO 0.01 K/mm3 (0.00-0.10); IMMATURE GRAN PERCENT AUTO 0 % (0-1); LYMPHOCYTES ABSOLUTE AUTO 4.32 K/mm3 (0.84-5.20); LYMPHOCYTES PERCENT AUTO 43 % (21-46); MONOCYTES ABSOLUTE AUTO 0.73 K/mm3 (0.16-1.47); MONOCYTES PERCENT AUTO 7 % (4-13); Mean Corpuscular HGB 28.5 pg (26.0-34.0); Mean Corpuscular HGB Conc 32.8 g/dL (31.5-36.5); Mean Corpuscular Volume 87 fL (80-100); Mean Platelet Volume 9.3 fL (9.1-12.4); NEUTROPHILS ABSOLUTE AUTO 4.59 K/mm3 (1.96-9.15); NEUTROPHILS PERCENT AUTO 46 % (41-73); Platelet Count 326 K/mm3 (150-400); RDW Coefficient Variation 13.4 % (11.7-14.2); RDW Standard Deviation 41.9 fL (35.1-46.3); White Blood Cell Count 10.05 K/mm3 (4.00-11.30)
[2024-07-21 02:52] LABS: Albumin, Blood 3.1 g/dL (3.4-5.0); Albumin/Globulin Ratio 0.8 (0.8-1.8); Bilirubin, Total 0.2 mg/dL (0.1-1.0); Calcium, Blood 10.1 mg/dL (8.5-10.1); Creatinine, Blood 0.84 mg/dL (0.40-1.00); Globulin, Blood 3.7 g/dL (2.2-4.0); Potassium, Blood 3.7 mmol/L (3.5-5.5); Total Protein, Blood 6.8 g/dL (6.4-8.2)
[2024-07-21 03:22] LABS: International Normalized Ratio 0.95; Prothrombin Time Results 10.2 Sec (9.7-11.5)
[2024-07-21] MEDS ORDERED: FentaNYL Citrate 50 MCG/ML 2 ML Injection IV ONE (03:30)
[2024-07-21] MEDS ORDERED: Diazepam 5 MG / ML 2ML SYR IV ONE (04:30)
[2024-07-21] MEDS ORDERED: Ondansetron HCl 2 MG / ML 2ML Vial IV ONE (06:30)
[2024-07-21] MEDS ORDERED: Lactated Ringer's 1,000 ML IV SCH ×3 (08:30→15:40)
[2024-07-21] MEDS ORDERED: Ondansetron HCl 2 MG / ML 2ML Vial IV PRN ×2 (08:30→08:45)
[2024-07-21] MEDS ORDERED: FentaNYL Citrate 50 MCG/ML 2 ML Injection IV PRN (08:30)
[2024-07-21] MEDS ORDERED: OxyCODONE HCL 5 MG TAB PO PRN (08:40)
[2024-07-21] MEDS ORDERED: Lactated Ringer's 1,000 ML IV ONE (08:45)
[2024-07-21] MEDS ORDERED: Acetaminophen 325 MG TABLET PO PRN (08:45)
[2024-07-21] MEDS ORDERED: FLU VACC TS2024-25(6MOS UP)/PF 45 MCG/0.5 ML SYRINGE IM PRN (08:45)
[2024-07-21] MEDS ORDERED: HYDROmorphone HCl/Pf 1MG SYR IV PRN (08:45)
[2024-07-21] MEDS ORDERED: Sennosides 8.6 MG Tab PO SCH (09:00)
[2024-07-21] MEDS ORDERED: Docusate Sodium 100 MG Cap PO SCH (09:00)
[2024-07-21] MEDS ORDERED: Ketorolac Tromethamine 15mg Vial IV PRN (09:15)
--- NOTE | 2024-07-21 10:00 | NUR ---
PT ARRIVED TO THE ROOM AT APPROXIMATELY 0900. PT ALERT, ORIENTED, PLEASANT AND PAIN MANAGED UPON ARRIVAL. DR. RAWLS NOTIFIED OF ARRIVAL FROM ER.
[2024-07-21] MEDS ORDERED: NS 250 ML IV PRN (10:50)
[2024-07-21] MEDS ORDERED: Ampicillin Sod/Sulbactam Sod 3 GM in NS 100 ML IV SCH (12:00)
[2024-07-21] MEDS ORDERED: Indocyanine Green 25 MG Vial IV ONE (14:00)
[2024-07-21] MEDS ORDERED: Bupivacaine 0.5% HCl 5 MG/ML 30MLVIAL ONE (15:25)
[2024-07-21] MEDS ORDERED: CeFAZolin Sodium 2,000 MG in NS 100 ML IV SCH (15:40)
--- NOTE | 2024-07-21 15:44 | NUR ---
PT HAS 18G IV TO LEFT AC THAT FLUSHES WELL AND FLOWS TO GRAVITY.
[2024-07-21] MEDS ORDERED: propofoL 20 ML IV ONE (16:30)
[2024-07-21] MEDS ORDERED: FentaNYL Citrate 50 MCG/ML 2 ML Injection ONE ×2 (16:30→17:58)
[2024-07-21] MEDS ORDERED: Rocuronium Bromide 10 MG/ML 5ML Injection IV ONE ×2 (16:30→17:55)
[2024-07-21] MEDS ORDERED: Dexamethasone Sod Phos 10 MG/ML 1ML VIAL ONE (17:06)
[2024-07-21] MEDS ORDERED: Ondansetron HCl 2 MG / ML 2ML Vial ONE (18:09)
[2024-07-21] MEDS ORDERED: Sugammadex Sodium 200 MG/2ML SDV (100 MG/ML) ONE (18:09)
--- NOTE | 2024-07-21 18:36 | NUR ---
SHIFT SUMMARY PT HAS DENIED PAIN/NAUSEA T/O THE DAY. PT INDEPENDENT IN THE ROOM. PT IN OR.
[2024-07-22 04:41] VITALS: BP 114/67
--- NOTE | 2024-07-22 06:45 | NUR ---
SHIFT SUMMARY VSS UP TO BR, VOIDING COPIOUS AMOUNTS. DID NOT NEED IV PAIN MED FROM ME.NO NAUSEA TAKING LIGHT FOODS ALSO.
[2024-07-22 07:41] VITALS: BP 106/65
[2024-07-22] MEDS ORDERED: Enoxaparin 40 MG/0.4 ML SYR SC SCH (09:00)
[2024-07-22] MEDS ORDERED: OXAYDO5 M1 PO (09:15)
--- NOTE | 2024-07-22 10:10 | NUR ---
DISCHARGE PT EDUCATED ON AND RECEIVED PRINTED DC INSTRUCTIONS AND VERB AN UNDERSTANDING. RX SENT ELECTRONICALLY TO [facility] BY DR. RAWLS. IV DC'D. PT GATHERING PERSONAL BELONGINGS AND WAITING FOR RIDE HOME.
== END 2024-07-22 12:09 | disposition home or self-care (01) ==
LOC: ER 02:17 → ERHOLD 02:18 → SURS 09:17
PROVIDERS: Emergency Medicine; ADMIT Surgery
PROC: 8E0W4CZ Robotic Assisted Procedure of Trunk Region, Percutaneous Endoscopic Approach (ICD-10-PCS; principal; 2024-07-21 15:15)
PROC: 0FB04ZX Excision of Liver, Percutaneous Endoscopic Approach, Diagnostic (ICD-10-PCS; principal; 2024-07-21 15:15)
PROC: 0FT44ZZ Resection of Gallbladder, Percutaneous Endoscopic Approach (ICD-10-PCS; principal; 2024-07-21 15:15)
DX: K80.00 Calculus of gallbladder with acute cholecystitis without obstruction (principal); N80.9 Endometriosis, unspecified; Z88.2 Allergy status to sulfonamides
CPT/HCPCS: 71045; 71260; 76705; 76857; 80053; 83690; 84484; 85025; 85379; 85610; 85730; 88304; 88305; 88307; 88313; 93005; 93010; 94762; 96365; 96366; 96374-59; 96375; 96375-59; 99285-25; A9270; G0378; J0295; J0690; J1100; J1650; J1885; J2405; J2704; J3010; J3360; J7120; Q9967